=== PATIENT | male | born 1990 | race African-American/Black ===

== ENCOUNTER 2025-01-28 20:10 | Emergency (ER) | payer OTHER ==
[2025-01-28 20:15] VITALS: RESP 16
[2025-01-28] MEDS: KETOROLAC 15 MG/ML 1 ML VIAL IM STA (21:29)
[2025-01-28] MEDS: LIDOCAINE 1% INJ 10MG/ML (20 ML MDV) SQ ONE (21:30)
[2025-01-28] MEDS: LIDOCAINE 4% CREAM 5 GM TUBE TOPICAL ONE (21:34)
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
[2025-01-28 23:00] VITALS: BP 144/71; PULSE 84; TEMP 98.5
== END 2025-01-28 22:56 | disposition home or self-care (01) ==
LOC: EC 20:10
DX: S01.511A Laceration without foreign body of lip, initial encounter (principal); F17.200 Nicotine dependence, unspecified, uncomplicated; Y04.8XXA Assault by other bodily force, initial encounter
CPT/HCPCS: 99283; 96372; 12011; J2003; J1885